=== PATIENT | female | born 1980 | race Caucasian/White ===

== ENCOUNTER 2020-08-27 16:29 | Outpatient (REF) | payer MEDICAID, SELFPAY | END 2020-08-27 16:30 | disposition home or self-care (01) | LOC: HO.LAB 16:29 | PROVIDERS: PCP Pediatrics; Visit Provider Internal Medicine | DX: Z20.828 Contact with and (suspected) exposure to other viral communicable diseases (principal) | CPT/HCPCS: 36415; 87635 ==

== ENCOUNTER 2020-10-11 14:19 | Outpatient (REF) | payer MEDICAID, SELFPAY | END 2020-10-11 14:20 | disposition home or self-care (01) | LOC: HO.LAB 14:19 | PROVIDERS: PCP Pediatrics; Visit Provider Internal Medicine | DX: Z20.828 Contact with and (suspected) exposure to other viral communicable diseases (principal) | CPT/HCPCS: C9803; U0003 ==

== ENCOUNTER 2021-01-05 16:21 | Emergency (ER) | payer MEDICAID, SELFPAY ==
--- NOTE | ~2021-01-05 | XR_ITS ---
EXAMINATION: BILATERAL HANDS CLINICAL INFORMATION: Injury COMPARISON: Right wrist 07/29/2018, right and left hands 05/03/2018 TECHNIQUE: 3 views each hand FINDINGS: Left: There is a fracture at the base of the distal phalanx of the third digit which involves the joint space. No other fractures are seen. Right: No bone joint or soft tissue abnormality is seen. XR/XR hand LT 2V IMPRESSION: Fractured base of distal phalanx left third digit involving the joint space.
--- NOTE | ~2021-01-05 | XR_ITS ---
EXAMINATION: BILATERAL HANDS CLINICAL INFORMATION: Injury COMPARISON: Right wrist 07/29/2018, right and left hands 05/03/2018 TECHNIQUE: 3 views each hand FINDINGS: Left: There is a fracture at the base of the distal phalanx of the third digit which involves the joint space. No other fractures are seen. Right: No bone joint or soft tissue abnormality is seen. XR/XR hand RT 2V IMPRESSION: Fractured base of distal phalanx left third digit involving the joint space.
[2021-01-05 16:55] VITALS: PULSE 79; RESP 20; TEMP 37.1; O2SAT 99; BMI 39.0
--- NOTE | 2021-01-05 20:13 | ED.EXTPRO ---
HPI - Extremity Problem General Chief complaint: Extremity Problem Stated complaint: Finger Injury Time Seen by Provider: 01/05/21 19:27 History of Present Illness HPI Narrative: Patient complains of pain in left 3rd finger and right thumb after tripping on her 's leg, no other injuries Related Data Previous Rx's Medication Instructions Recorded ibuprofen 600 mg PO Q6H PRN #20 tab 01/05/21 Allergies Allergy/AdvReac Type Severity Reaction Status Date / Time No Known Allergies Allergy Unverified 08/12/20 19:08 [No Known Allergies*] Review of Systems Review of Systems: Positive for left 3rd finger and right thumb pain Negatives are dizziness weakness fainting loss of consciousness head injury neck pain back pain, no numbness no weakness no tingling no laceration Yes all other systems are reviewed and are negative [facility] Past Medical History Source: nursing notes reviewed Medical History (Updated 01/06/21 @ 00:01 by Thomas Moscoso) Asthma Social History Social History Alcohol intake: never Smoked in Last 30 Days: No Use of substances other than those prescribed or required for medical reasons: No Advance Directives: No Advance Directives Information Provided: Yes Physical Exam Vital Signs: Vital Signs: Last Vital Signs Temp 98.7 F 01/05/21 16:55 Pulse 79 01/05/21 16:55 Resp 20 01/05/21 16:55 Pulse Ox 99 01/05/21 16:55 Body Mass Index 39.0 Patient is A&O x3, comfortable, no acute distress Head is normocephalic atraumatic Neck is supple nontender Respiratory no distress Extremities the left 3rd finger has tenderness and swelling around the D IP joint, skin is intact, tendon function is normal and neurovascular distal The right thumb had some tenderness at the MCP joint dorsal, there was not tenderness over the ulnar collateral ligament, there was no swelling and the thumb had a good range of motion, skin was intact and neurovascular distal as well as tendon function normal Skin no rashes Neuro no focal deficits Course Course Course Narrative: X-rays of right and left hand showed no abnormality on the right but did show a fracture of the distal phalanx of the left 3rd finger into the joint line and a finger splint was placed by the tech Discharge Plan Discharge Clinical Impression: Finger fracture, left Patient Disposition: Home, Self-Care Additional Instructions: Follow with hand doctor Return any concerns X-ray showed a fracture at the tip of the left 3rd finger Prescriptions: New ibuprofen 600 mg tablet 600 mg PO Q6H PRN (Reason: pain) Qty: 20 RF: 0 Referrals: Yehuda Vogel MD [Physician] - 2 days (Left 3rd finger fracture) Interventions: ED Discharge Assessment Last Done: 01/05/21 20:23 Discharge Date/Time: 01/05/21 20:24
== END 2021-01-05 20:24 | disposition home or self-care (01) ==
PROVIDERS: Emergency Provider Emergency Medicine
DX: S62.663A Nondisplaced fracture of distal phalanx of left middle finger, initial encounter for closed fracture (principal); W03.XXXA Other fall on same level due to collision with another person, initial encounter; Y93.9 Activity, unspecified; Y92.019 Unspecified place in single-family (private) house as the place of occurrence of the external cause; Y99.9 Unspecified external cause status
CPT/HCPCS: 29130; 73120; 99283; 99284

== ENCOUNTER → 2021-01-12 09:48 | Outpatient (BNVA) | payer MEDICAID, SELFPAY | PROVIDERS: Visit Provider Orthopaedic Surgery | DX: S62.633A Displaced fracture of distal phalanx of left middle finger, initial encounter for closed fracture (principal); S62.621A Displaced fracture of middle phalanx of left index finger, initial encounter for closed fracture | CPT/HCPCS: 99202 ==

== ENCOUNTER 2021-01-19 12:25 | Day surgery (SDC) | payer MEDICAID, SELFPAY ==
[2021-01-18 10:40] VITALS: BMI 38.9
--- NOTE | 2021-01-18 10:43 | HO.ANESPROP2 ---
Documented by User: Brooke Carrera 01/18/21 10:46 HPI - Anesthesia Eval Consult details Narrative: 40yo F for Left ORIF middle finger [facility] Active Problems Active Problems: All Active Problems (Updated 01/12/21 @ 13:11 by Heather Castellanos MD) Fracture of middle phalanx of left index finger (Acute) Fracture of distal phalanx of left middle finger (Acute) Past Medical History Medical History (Updated 01/18/21 @ 10:45 by Brooke Carrera) Asthma Obese Social History Social History (Updated 01/12/21 @ 10:43 by GUME Alvarez) Are you a primary career guidance technician to a significant other at home: No Do you presently have visiting nurse or other home services: No Alcohol intake: never Smoking Status: Never smoker Second Hand Smoke Exposure: No Advance Directives: No Advance Directives Information Provided: Yes Advance Directives on File: No Recently lost weight without trying: No Current occupational status: unemployed Current occupation: left handed Meds Allergies Allergy/AdvReac Type Severity Reaction Status Date / Time No Known Allergies Allergy Verified 01/12/21 10:42 [No Known Allergies*] Exam Exam Date and Time: January 18, 2021 1043 Height,Weight and Vital Signs: Height 5 ft 2 in Weight 96.615 kg Assessment and Plan Assessment Anesthesia Assessment: Chart Reviewed Documented by User: Clary Ayon 01/19/21 13:47 [facility] Past Medical History Medical History (Updated 01/18/21 @ 10:45 by Brooke Carrera) Asthma Obese Social History Social History (Updated 01/12/21 @ 10:43 by GUME Alvarez) Are you a primary career guidance technician to a significant other at home: No Do you presently have visiting nurse or other home services: No Alcohol intake: never Smoking Status: Never smoker Second Hand Smoke Exposure: No Advance Directives: No Advance Directives Information Provided: Yes Advance Directives on File: No Recently lost weight without trying: No Current occupational status: unemployed Current occupation: left handed Meds Allergies Allergy/AdvReac Type Severity Reaction Status Date / Time No Known Allergies Allergy Verified 01/12/21 10:42 [No Known Allergies*] Exam Airway Mallampati Class: II TM Dist: >3cm Neck ROM: Full Heart: RRR Lungs: CTA BL Assessment and Plan Assessment Anesthesia Assessment: Anesthesia Plan Discussed and Chart Reviewed Final Anesthetic Review NPO: Yes ASA Class: II Final Preanesthetic Review: No Changes in Pt Med Stat and Consent Obtained/Reviewed Patient Risk: Intermediate Procedure Risk: Intermediate Anesthetic Plan Anesthetic Plan: MAC: Disposition: Standard PACU
[2021-01-19] VITALS (8 sets, daily range): BP systolic 103–122; BP diastolic 48–77; PULSE 63–82; RESP 16–20; TEMP 36.2–37.1; O2SAT 97–100; BMI 38.9
--- NOTE | ~2021-01-19 | FL_ITS ---
EXAMINATION: XR FLUOROSCOPY WITH IMAGES CLINICAL INFORMATION: Reduction intra-articular fracture base third finger distal phalanx COMPARISON: Radiographs left hand 01/05/2021 TECHNIQUE: Fluoroscopy performed by Dr. Heather Castellanos. Fluoroscopy time: 44 seconds. DAP: 15.41 mGycm2 Images: 5 FINDINGS: The intra-articular fracture dorsal base finger distal phalanx is reduced with single orthopedic pin. Fracture fragments are in near-anatomic alignment. Hardware is intact. FL/FL guidance in OR IMPRESSION: Status post reduction fracture distal phalanx left third finger.
[2021-01-19 12:52] LABS: UPreg QC Valid YES; Urine Pregnancy NEGATIVE (NEGATIVE)
[2021-01-19] MEDS: Lactated Ringers 1,000 ML 100 ML IVCONT (13:27)
[2021-01-19] MEDS: Midazolam HCl/PF 2 MG/2 ML VIAL IVPUSH (13:56)
--- NOTE | 2021-01-19 15:49 | MHC.SHP ---
Pre-Procedural Eval Section B Chief Complaint: fx left middle finger Allergies: Allergies Allergy/AdvReac Type Severity Reaction Status Date / Time No Known Allergies Allergy Verified 01/12/21 10:42 [No Known Allergies*] Plan I have reviewed the history and physical and performed a pertinent physical examination on my patient. No changes have occurred unless specified.
--- NOTE | 2021-01-19 15:49 | W.PM.OPN ---
Operative Note Operative Note Date of Service: 01/19/21 Narrative: Operative Note Narrative: Preop diagnosis: 1. Left middle finger displaced intra-articular fracture of the base of the distal phalanx Postop diagnosis: Same Procedure: 1. Left middle finger distal phalanx fracture open reduction internal fixation Surgeon: Heather Castellanos MD Anesthesia: Mac plus regional block Findings: Displaced intra-articular fracture involving at least 50% of the articular surface. Satisfactory intraop operative reduction Implants: A 0.045 K-wire x1 Tourniquet time: 25 minutes EBL: 5.0 ml Specimen: None Drains: None Complications: None Disposition: Brought to the recovery room in stable condition Plan: Follow-up in 10-14 days for wound check, finger splint to allow PIP motion, and to teach pin site care Anticipate K-wire removal at between 5 and 6 weeks Indications: The patient is a 40 year old woman with displaced intra-articular fracture of the base of the left middle finger distal phalanx involving more than 50% of the articular surface . The risks and benefits of operative treatment, including but not limited to risk of damage to blood vessels, nerves, tendons, infection, recurrence, persistent pain or numbness, incomplete resolution of preoperative symptoms, or need for further surgery were discussed with the patient and they wished to proceed with surgery. Procedure: Once consent was obtained patient was brought back to the operating suite and placed in the operating table in a supine position. . Perioperative antibiotics and anesthesia was administered by the anesthesia team. A digital block was performed by me by infiltrating about the digital nerves in the left middle finger using some 2% lidocaine with 1 to [id number] epinephrine. A tourniquet was applied to the proximal aspect of the left upper extremity and the limb was prepped and draped in a standard surgical fashion. The limb was elevated exsanguinated with Esmarch bandage and the tourniquet inflated to 250 mm of mercury for a total tourniquet time of 25 minutes. I made an s shaped incision over the left middle finger DIP joint. The incision was made through the skin to the soft tissues using a #15 blade. The fracture was identified and debrided using a # 15 blade and a curet. An open reduction was performed. A 0.045 k-wire was passed retrograde through the tip of the distal phalanx. The fracture was reduced, and the dorsal fragment held in place. The 0.045 K-wire was advanced across the fracture, then across the DIP joint . I was very satisfied with our reduction and placement of the 0.045 K-wire. At this point the K-wire was bent cut short had a pin cap applied. At this point the tourniquet was deflated and hemostasis obtained with a brief period of local pressure and bipolar electrocautery. The wound was copiously irrigated with normal saline. The skin edges were reapproximated with 5-0 nylon suture. A sterile dressing and a finger splint were applied. The patient appears to have tolerated the procedure well and with no complications. All digits were well vascularized conclusion of the case.
--- NOTE | 2021-01-19 16:03 | ECG_ITS ---
Test Reason : Patient c/o chest pain post op Blood Pressure : / mmHG Vent. Rate : 068 BPM Atrial Rate : 068 BPM P-R Int : 160 ms QRS Dur : 084 ms QT Int : 430 ms P-R-T Axes : 016 017 050 degrees QTc Int : 457 ms Normal sinus rhythm with sinus arrhythmia Normal ECG No previous ECGs available Referred By: Cathleen Arnold Electronically Signed By:LAUREEN PAYNE MD
== END 2021-01-19 17:18 | disposition home or self-care (01) ==
PROVIDERS: Nurse Practitioner; PCP Internal Medicine; Visit Provider Orthopaedic Surgery
PROC: (CPT 26765; principal; 2021-01-19 14:10)
DX: S62.633A Displaced fracture of distal phalanx of left middle finger, initial encounter for closed fracture (principal); X58.XXXA Exposure to other specified factors, initial encounter; Y93.89 Activity, other specified; Y92.9 Unspecified place or not applicable; Y99.8 Other external cause status; J45.909 Unspecified asthma, uncomplicated
CPT/HCPCS: 26765; 81025; 93005; J0690; J2250; J2370; J3010

== ENCOUNTER 2021-01-24 14:22 | Outpatient (REF) | payer MEDICAID, SELFPAY ==
--- NOTE | ~2021-01-24 | XR_ITS ---
EXAMINATION: XR HAND, LEFT CLINICAL INFORMATION: Fracture COMPARISON: Previous x-rays most recent December 2010 TECHNIQUE: PA, lateral, and oblique views of the left hand. FINDINGS: There is a pin across the DIP joint of the third finger. There is a displaced fracture of the distal phalanx intra-articular with the DIP joint. Fracture fragment is displaced dorsally. There is a minimally displaced volar fracture of the middle phalanx of the third finger intra-articular with the PIP joint. Alignment appears unchanged from 01/05/2021. Fracture lines are still seen and no bony callus formation is seen. XR/XR hand LT min 3V IMPRESSION: New pin or wire across the DIP joint of the third finger. Distal and middle phalanx fractures appear unchanged in alignment from previous x-ray 01/05/2021.
== END 2021-01-24 14:23 | disposition home or self-care (01) ==
LOC: HO.XRAY 14:22
PROVIDERS: PCP Internal Medicine; Visit Provider Orthopaedic Surgery
DX: S62.621A Displaced fracture of middle phalanx of left index finger, initial encounter for closed fracture (principal); S62.633A Displaced fracture of distal phalanx of left middle finger, initial encounter for closed fracture
CPT/HCPCS: 73130; 99212

== ENCOUNTER 2021-01-31 10:54 | Outpatient (REF) | payer MEDICAID, SELFPAY ==
--- NOTE | ~2021-01-31 | XR_ITS ---
EXAMINATION: XR HAND, LEFT CLINICAL INFORMATION: Pain in left hand COMPARISON: 01/24/2021 TECHNIQUE: PA, lateral, and oblique views of the left hand. FINDINGS: K wire is in place transfixing the fracture of the third digit distal phalanx. The hardware crosses the distal interphalangeal joint. Alignment is maintained. Unchanged alignment of the dorsal fracture fragment. Mild soft tissue swelling. XR/XR hand LT min 3V IMPRESSION: No significant change from prior with K wire in place at the third digit distal interphalangeal joint. Distal phalanx fracture fragment is unchanged.
== END 2021-01-31 10:55 | disposition home or self-care (01) ==
LOC: HO.HOSX 10:54
PROVIDERS: PCP Internal Medicine; Visit Provider Orthopaedic Surgery
DX: S62.621D Displaced fracture of middle phalanx of left index finger, subsequent encounter for fracture with routine healing (principal); S62.633D Displaced fracture of distal phalanx of left middle finger, subsequent encounter for fracture with routine healing
CPT/HCPCS: 73130; 99212

== ENCOUNTER 2021-02-21 11:08 | Outpatient (REF) | payer MEDICAID, SELFPAY ==
[2021-02-22 08:40] LABS: BV Int Neg Control Negative (Negative); BV Int Pos Control Positive (Positive)
[2021-02-22 08:57] LABS: CT PCR NOT DETECTED (Not Detect.); NG PCR NOT DETECTED (Not Detect.)
== END 2021-02-21 11:09 | disposition home or self-care (01) ==
LOC: HO.LAB 11:08
PROVIDERS: PCP Internal Medicine; Visit Provider Advanced Practice Midwife
DX: Z01.411 Encounter for gynecological examination (general) (routine) with abnormal findings (principal); N93.9 Abnormal uterine and vaginal bleeding, unspecified; R32 Unspecified urinary incontinence; R10.2 Pelvic and perineal pain; N75.0 Cyst of Bartholin's gland; Z20.2 Contact with and (suspected) exposure to infections with a predominantly sexual mode of transmission
CPT/HCPCS: 87480; 87491; 87510; 87591; 87660

== ENCOUNTER 2021-02-24 13:11 | Outpatient (REF) | payer MEDICAID, SELFPAY ==
--- NOTE | ~2021-02-24 | US_ITS ---
EXAMINATION: US PELVIS, COMPLETE CLINICAL INFORMATION: Pelvic and perineal pain COMPARISON: 02/14/2017 TECHNIQUE: Transabdominal and transvaginal imaging performed. FINDINGS: Uterus normal in size and configuration measuring 8.1 x 4.1 x 5.7 cm. There is a 4.3 x 4.0 x 3.1 cm fibroid within the right uterus. Endometrial signature measures 1.5 cm and is homogeneous in appearance. Ovaries are normal in size and appearance measuring 3.2 x 1.7 x 2.1 cm on the right and 2.9 x 1.3 x 1.7 cm on the left. No adnexal masses. No free fluid. US/US pelvic complete IMPRESSION: Single 4.3 cm fibroid measures from the right lateral uterus. Unremarkable sonographic appearance of the ovaries.
--- NOTE | ~2021-02-24 | US_ITS ---
EXAMINATION: US PELVIS, COMPLETE CLINICAL INFORMATION: Pelvic and perineal pain COMPARISON: 02/14/2017 TECHNIQUE: Transabdominal and transvaginal imaging performed. FINDINGS: Uterus normal in size and configuration measuring 8.1 x 4.1 x 5.7 cm. There is a 4.3 x 4.0 x 3.1 cm fibroid within the right uterus. Endometrial signature measures 1.5 cm and is homogeneous in appearance. Ovaries are normal in size and appearance measuring 3.2 x 1.7 x 2.1 cm on the right and 2.9 x 1.3 x 1.7 cm on the left. No adnexal masses. No free fluid. US/US transvaginal IMPRESSION: Single 4.3 cm fibroid measures from the right lateral uterus. Unremarkable sonographic appearance of the ovaries.
== END 2021-02-24 13:12 | disposition home or self-care (01) ==
LOC: HO.US 13:11
PROVIDERS: Visit Provider Advanced Practice Midwife
DX: R10.2 Pelvic and perineal pain (principal)
CPT/HCPCS: 76830; 76856

== ENCOUNTER 2021-02-28 12:14 | Outpatient (REF) | payer MEDICAID, SELFPAY ==
--- NOTE | ~2021-02-28 | XR_ITS ---
EXAMINATION: XR HAND, LEFT CLINICAL INFORMATION: Pain in left hand COMPARISON: 01/31/2021 TECHNIQUE: PA, lateral, and oblique views of the left hand. FINDINGS: There is a K wire across the third digit distal interphalangeal joint. Fracture of the third digit distal phalanx is again noted with unchanged alignment. Osseous bridging. No new abnormality. Mild soft tissue swelling. XR/XR hand LT min 3V IMPRESSION: K wire fixation of the third digit distal phalanx fracture with unchanged alignment. Osseous bridging.
== END 2021-02-28 12:15 | disposition home or self-care (01) ==
LOC: HO.HOSX 12:14
PROVIDERS: Visit Provider Orthopaedic Surgery
DX: S62.621D Displaced fracture of middle phalanx of left index finger, subsequent encounter for fracture with routine healing (principal); S62.633D Displaced fracture of distal phalanx of left middle finger, subsequent encounter for fracture with routine healing
CPT/HCPCS: 73130; 99212

== ENCOUNTER 2021-03-03 13:00 | Outpatient (RCR) | payer MEDICAID, SELFPAY ==
--- NOTE | 2021-02-24 15:37 | MHC.OT.OEV ---
[address] [phone] F: [phone] Occupational Therapy Evaluation Diagnosis: Fracture of middle phalanx of left index finger; Fracture of distal phalanx of left middle finger s/p left middle finger ORIF; K-wire at the DIP Date of Onset: 12/31/20 Date of Surgery: 01/19/21 Attending Provider: Heather Castellanos Prescribed Treatment: Evmolly MD Follow Up Appointment: 02/28/21 History of Current Condition: Pt jammed the middle finger backwards and broke the distal and middle phalanx s/p ORIF on 01/19/21. 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 Independent with ADLs/IADLs, enjoys knitting, painting, reading bible Living Situation, Family and/or Social Support: Lives with spouse who assists with ADLs/IADLs Current Level of Function and Occupation Self Care, Employment, Leisure: Not working, difficulties with ADLs/IADLs due to pain and ROM limitations, has recently returned to some leisure activities like knitting Sleep: No problems, unless wire gets hit Driving: No problems with driving Pain Assessment Pain Score: 4-10/10 Pain Scale Used: Numeric (0 - 10) Pain Location and Description: L MF at DIP and PIP (4-10/10) R Thumb, CMC joint (2-5/10) Aggravating Factors: Bumping finger on objects Alleviating Factors: Does not use heat/ice, not taking medication for pain Skin and Soft Tissue Assessment Skin and Soft Tissue: Comments: K-wire in L MF with dorsal steri-strips; pin clear, dry and intact without drainage Sensory Assessment Temperature: Light Touch: Left Impaired Proprioception: Vibration: Comments: [place] monofilaments: L hand diminished light touch to dorsal hand/digits Hypersensitive to dorsal MF of L hand Edema Assessment Upper Extremity: WNL Lower Extremity: Comments: MF PIP circumference: L 6.1 cm; R 6.0 cm Dexterity Assessment Dexterity: B/L Impaired Comments: Functional Dexterity Test: R 46 seconds, L 46 (76 seconds with 3 drops) and refraining use of MF Special Tests Comments: AROM(PROM) Strength Elbow Flexion: WFL Extension: WFL Pronation: WFL Supination: WFL Comments: Flexion: Extension: Pronation: Supination: Comments: Wrist Flexion: L 58; R 70 Extension: L 65; R 64 Ulnar Deviation: L 42; R 52 Radial Deviation: L 35; R 22 Comments: Pain in L wrist with wrist extension Flexion: Extension: Ulnar Deviation: Radial Deviation: Comments: Digits Index MCP: L 70 PIP: DIP: Long MCP: L 80; R 74 PIP: L 0/22; R 0/84 DIP: L Pin intact; R 84 Ring MCP: L 66 PIP: DIP: Small MCP: L 70 PIP: DIP: Comments: Gross Grasp: R 86 Lateral Pinch: R 4 Two-Point Pinch: R 4 Three-Jaw Edinson: R 7 Comments: Defer L due to pinning Patient Education Primary Language: Release Manager Required: Yes Current Knowledge: Understands information with skills for self-management Teaching Method: Demonstration Handouts Verbal Education Needs Identified on Evaluation: ADL's Disease Information Exercise Pain How did patient/family demonstrate learning? Patient demonstrates Patient verbalizes Family/SO demonstrates Family/SO verbalizes Barriers to Learning: None Readiness for Learning: Accepting Who was educated? Patient Family/spouse Comments: Declines use of [facility] or [facility] parts interpreter; spouse assisting with translation Plan of Care Assessment: Jairo is a 40 year old female who sustained a fracture to her non dominant left middle finger at distal and middle phalanx. She is five weeks post op and presents to the clinic in an gregory bandage and provides adequate pin protection. She has a follow-up doctor's appointment on 02/28/[address] Castellanos for pin removal. 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 During her OT evaluation, Jairo presents as guarded and demonstrates hesitation in flexing at the MF PIP joint. A 71% limitation was reported per the Quick DASH assessment. Continued skilled OT is highly warranted to achieve her optimal functional level and improve her QOL. STG Duration: 3 weeks Short Term Goals: Ind HEP Ind heat/ice use IND scar mobilization and desensitation techniques IND ADL closure board without difficulties L MF PIPJ 40 degrees Report <6/10 with light ADLs and IADLs with incorporation of L MF LTG Duration: 6 weeks Detention Goals: Wean from orthosis Quick DASH <40 L gross grasp >60 Improve functional dexterity test to moderately functional (<33 seconds) Report <4/10 pain with moderate IADLs and ADLs, painfree at rest L MF PIPJ >65 degrees L MF DIPJ > 50 degrees Frequency and Duration: The patient will be seen 2-3x/week for 6 weeks Treatment Plan: Therapeutic Exercise Therapeutic Activity Home Exercise Program Splinting Neuro Re-ed Patient Education Desensitization/Sensory Re-ed Edema Control ADL Training Ultrasound NMES Iontophoresis Paraffin Fluidotherapy MHP Cold Packs Joint Mobilization Soft Tissue Mobilization Kinesiotaping Electronically Signed By: Khalida Mas OT/s Reviewed/agree with student documentation: Yes Therapist: PARAG George/Oskar Please sign and return to therapist, Thank you for your referral.
--- NOTE | 2021-03-17 14:17 | MHC.OT.DC ---
[address] [phone] F: [phone] Occupational Therapy Discharge Note Provider: Heather Castellanos Diagnosis: Fracture of middle phalanx of left index finger; Fracture of distal phalanx of left middle finger; s/p LT MF ORIF K-wire at the DIP Date of Surgery: 01/19/21 Date of Evaluation: 02/24/21 Date of Discharge: 03/17/21 Treatments to Date: 2 Cancellations to Date: 1 No Shows to Date: 5 Discharge Status: Visit Non-compliance Discharge Summary: PATIENT HAS NO-SHOWED TO FIVE OT APPOINTMENTS. MULTIPLE VOICEMAILS LEFT FOR PATIENT, WITH ASSIST FROM [employer]ISTOLOGY AIDE, EDUCATING Pt ON IMPORTANCE OF OT AND OF THE CORE ATTENDANCE POLICY. MD NOTIFIED OF NON-COMPLIANCE. PATIENT WILL BE DISCHARGED FROM OUTPATIENT OT AT THIS TIME. Electronically Signed By: BÁRBARA BROTHERS OTR/L Reviewed/agree with student documentation: N/A Therapist: Please Sign and return to therapist, thank you for your referral.
== END 2021-03-17 14:20 | disposition other institution (70) ==
LOC: HO.OT 13:00
PROVIDERS: PCP Internal Medicine; Visit Provider Orthopaedic Surgery
DX: S62.621D Displaced fracture of middle phalanx of left index finger, subsequent encounter for fracture with routine healing (principal); S62.633D Displaced fracture of distal phalanx of left middle finger, subsequent encounter for fracture with routine healing
CPT/HCPCS: 97110; 97167

== ENCOUNTER 2021-03-14 13:38 | Outpatient (REF) | payer MEDICAID, SELFPAY ==
[2021-03-14 14:05] LABS: COVID-19 Test Negative (Negative)
== END 2021-03-14 13:39 | disposition home or self-care (01) ==
LOC: HO.LAB 13:38
PROVIDERS: Visit Provider Internal Medicine
DX: Z20.822 Contact with and (suspected) exposure to COVID-19 (principal)
CPT/HCPCS: 36415; 87635; C9803

== ENCOUNTER 2021-03-15 10:41 | Outpatient (REF) | payer MEDICAID, SELFPAY ==
--- NOTE | ~2021-03-15 | XR_ITS ---
EXAMINATION: XR HAND, LEFT CLINICAL INFORMATION: Left hand pain. COMPARISON: Most recent left hand radiographs dated 02/28/2021. TECHNIQUE: PA, lateral, and oblique views of the left hand. FINDINGS: Interval removal of the previously seen orthopedic wire. Deformity consistent with prior injury. No acute fracture or dislocation. No joint space narrowing or marginal osteophytes. Mild periarticular osteopenia. XR/XR hand LT min 3V IMPRESSION: Osseous bridging across the previously seen fracture. No acute fracture or dislocation. Mild periarticular osteopenia.
== END 2021-03-15 10:42 | disposition home or self-care (01) ==
LOC: HO.HOSX 10:41
PROVIDERS: Visit Provider Orthopaedic Surgery
DX: S62.621D Displaced fracture of middle phalanx of left index finger, subsequent encounter for fracture with routine healing (principal); S62.633D Displaced fracture of distal phalanx of left middle finger, subsequent encounter for fracture with routine healing; X58.XXXD Exposure to other specified factors, subsequent encounter
CPT/HCPCS: 73130; 99212

== ENCOUNTER 2021-04-04 13:54 | Outpatient (REF) | payer MEDICAID, SELFPAY ==
[2021-04-04 14:13] LABS: COVID-19 Test Negative (Negative); IDNOW Serial# 55D5AD1C
== END 2021-04-04 13:55 | disposition home or self-care (01) ==
LOC: HO.LAB 13:54
PROVIDERS: Visit Provider Internal Medicine
DX: Z20.822 Contact with and (suspected) exposure to COVID-19 (principal)
CPT/HCPCS: 36415; 87635; C9803

== ENCOUNTER 2021-04-26 08:12 | Outpatient (REF) | payer MEDICAID, SELFPAY | END 2021-04-26 08:13 | disposition home or self-care (01) | LOC: HO.HOSX 08:12 | PROVIDERS: Visit Provider Orthopaedic Surgery | DX: Z13.89 Encounter for screening for other disorder (principal) ==

== ENCOUNTER 2021-08-03 10:46 | Outpatient (REF) | payer MEDICAID, SELFPAY | END 2021-08-03 10:47 | disposition home or self-care (01) | LOC: HO.LNP 10:46 | DX: R35.0 Frequency of micturition (principal); N39.3 Stress incontinence (female) (male) | CPT/HCPCS: 51798; 87086; 99202 ==

== ENCOUNTER 2021-08-13 13:40 | Emergency (ER) | payer MEDICAID, SELFPAY ==
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
[2021-08-13 14:27] VITALS: BP 117/74; PULSE 74; RESP 18; TEMP 37.1; O2SAT 99; BMI 37.8
[2021-08-13] MEDS: Cyclobenzaprine HCl 5 MG TABLET PO (15:44)
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
== END 2021-08-13 16:57 | disposition home or self-care (01) ==
PROVIDERS: Emergency Provider Emergency Medicine; PCP Pediatrics
DX: M54.2 Cervicalgia (principal); M54.5 Low back pain; M25.512 Pain in left shoulder; M25.511 Pain in right shoulder; Z79.899 Other long term (current) drug therapy
CPT/HCPCS: 72125; 99283; 99284

== ENCOUNTER 2021-10-27 11:28 | Outpatient (REF) | payer MEDICAID, SELFPAY ==
[2021-10-27 12:28] LABS: COVID-19 Test Negative (Negative)
== END 2021-10-27 11:29 | disposition home or self-care (01) ==
LOC: HO.LAB 11:28
PROVIDERS: Visit Provider Internal Medicine
DX: Z20.822 Contact with and (suspected) exposure to COVID-19 (principal)
CPT/HCPCS: 36415; 87635; C9803

== ENCOUNTER 2021-12-02 13:36 | Outpatient (REF) | payer MEDICAID, SELFPAY ==
[2021-12-02 15:03] LABS: Binax Internal Control QC Valid; Binax Now Covid-19 Ag Negative (Negative)
== END 2021-12-02 13:37 | disposition home or self-care (01) ==
LOC: HO.LAB 13:36
PROVIDERS: Visit Provider Internal Medicine
DX: Z20.822 Contact with and (suspected) exposure to COVID-19 (principal)
CPT/HCPCS: 36415; C9803

== ENCOUNTER 2022-06-27 14:53 | Emergency (ER) | payer MEDICAID, SELFPAY ==
--- NOTE | ~2022-06-27 | XR_ITS ---
EXAMINATION: XR CHEST CLINICAL INFORMATION: Chest pain COMPARISON: 01/28/2020 TECHNIQUE: Frontal view of the chest was obtained. FINDINGS: No significant abnormality is noted involving the heart, lungs, mediastinum, bony thorax or soft tissues. XR/XR chest 1V IMPRESSION: Unremarkable examination.
--- NOTE | 2022-06-27 14:57 | ECG_ITS ---
Test Reason : cp Blood Pressure : / mmHG Vent. Rate : 077 BPM Atrial Rate : 077 BPM P-R Int : 146 ms QRS Dur : 082 ms QT Int : 388 ms P-R-T Axes : 018 027 001 degrees QTc Int : 439 ms Normal sinus rhythm with sinus arrhythmia Normal ECG When compared with ECG of 19-JAN-2021 16:36, T wave inversion now evident in Inferior leads Referred By: Generic ED Physician Electronically Signed By:LAUREEN PAYNE MD
[2022-06-27 15:19] VITALS: BP 130/68; PULSE 90; RESP 18; TEMP 36.6; O2SAT 97; BMI 40.2
[2022-06-27 15:32] LABS: MANUAL DIFF FLAG NO
[2022-06-27 15:35] LABS: Basophils Percent Auto 0.1 % (0-2); Eosinophils Percent Auto 0.3 % (0-4); Hematocrit 39.4 % (37.0-47.0); Hemoglobin 13.1 g/dl (12.0-16.0); Imm Gran Abs Auto 0.02 X10*3/uL (0.00-0.03); Imm Gran Pct Auto 0.2 % (0.0-0.4); Lymphocytes Absolute Auto 1.3 X10*3/uL (1.2-4.9); Lymphocytes Percent Auto 15.1 % (20-40); Mean Corpuscular HGB Conc 33.2 g/dl (31.0-35.0); Mean Corpuscular Hemoglobin 27.8 pg (27.0-33.0); Mean Corpuscular Volume 83.7 fL (80.0-98.0); Mean Platelet Volume 10.3 fL (9.4-12.3); Monocytes Absolute Auto 0.4 X10*3/uL (0.1-1.2); Neutrophils Absolute Auto 7.1 x10*3/uL (2.0-8.3); Neutrophils Percent Auto 80.3 % (45-73); Platelet Count 253 X10*3/uL (160-400); Red Blood Count 4.71 X10*6/uL (4.20-5.50); Red Cell Distribution Width 13.2 % (11.0-16.0); White Blood Count 8.9 X10*3/uL (4.8-10.8)
[2022-06-27 15:47] LABS: Anion Gap 12 (12-20); Blood Urea Nitrogen 13 mg/dL (9-16); Calcium 8.9 mg/dL (8.4-10.2); Carbon Dioxide 25 mmol/L (22-29); Chloride 105 mmol/L (96-108); Creatinine Clr Calc Pharmacy 101.7; Estimated Glomerular Filt Rate > 60; Glucose Random 102 mg/dL (60-115); Potassium 4.1 mmol/L (3.3-5.1); Sodium 138 mmol/L (135-145)
[2022-06-27 15:58] LABS: Troponin-I High Sensitivity < 3.5 ng/L (<3.5-17.0)
--- NOTE | 2022-06-27 20:26 | ED_ITS ---
HPI - Chest Pain General Chief Complaint: Chest Pain Stated Complaint: Chest pain Time Seen by Provider: 06/27/22 20:25 Source: patient Mode of arrival: ambulatory Limitations: no limitations History of Present Illness HPI narrative: Patient with no known coronary disease complaining of substernal chest pain 3-4 days constant radiated to the left arm also sometimes feels short of breath pain increases on taking deep breath and palpation Related Data Home Medications Medication Instructions Recorded Confirmed amitriptyline 10 mg tablet 10 mg PO BEDTIME 08/03/21 cholecalciferol (vitamin D3) 50 50 mcg PO DAILY 08/03/21 mcg (2,000 unit) capsule cyclobenzaprine 10 mg tablet 10 mg PO BEDTIME 08/03/21 venlafaxine 37.5 mg 37.5 mg PO DAILY 08/03/21 capsule,extended release 24 hr Previous Rx's Medication Instructions Recorded ibuprofen 600 mg tablet 600 mg PO Q6H PRN pain #20 tabs 01/05/21 hydrocodone 5 mg-acetaminophen 325 1 - 2 tab PO Q6H PRN pain #10 tabs 21 mg tablet hydrocodone 5 mg-acetaminophen 325 1 tab PO Q8H PRN pain #5 tabs 01/24/21 mg tablet metronidazole 500 mg tablet 500 mg PO BID 7 days #14 tabs 03/03/21 (Flagyl) acetaminophen 500 mg tablet 500 mg PO Q6H PRN pain or fever 08/13/21 (Tylenol Extra Strength) #20 tabs cyclobenzaprine 5 mg tablet 5 mg PO Q8H PRN pain (scale score 08/13/21 7-10) 5 days #14 tabs lidocaine 5 % topical patch 1 patch topical DAILY PRN pain #30 08/13/21 (Lidoderm) ea naproxen 500 mg tablet 500 mg PO BID PRN pain 10 days #20 08/13/21 tabs oxybutynin chloride 10 mg 10 mg PO DAILY OAB 30 days #30 tabs 08/26/21 tablet,extended release 24 hr cyclobenzaprine 10 mg tablet 10 mg PO Q8H #20 tabs 06/27/22 diclofenac sodium 50 mg 50 mg PO Q12H PRN pain #30 tabs 06/27/22 tablet,delayed release Allergies Allergy/AdvReac Type Severity Reaction Status Date / Time No Known Allergies Allergy Verified 06/27/22 15:19 [No Known Allergies*] Review of Systems Review of Systems: Yes all other systems are reviewed and are negative [facility] Past Medical History Medical History Asthma Obese Stress incontinence (female) (male) Surgical History H/O hand surgery History of bilateral tubal ligation Social History Social History Are you a primary healthcare architect to a significant other at home: No Do you presently have visiting nurse or other home services: No Alcohol intake: never Patient Tobacco Use Status: Tobacco use Unknown Second Hand Smoke Exposure: No Use of substances other than those prescribed or required for medical reasons: No Advance Directives: No Advance Directives Information Provided: No Current occupational status: unemployed Current occupation: left handed Physical Exam Vital Signs: Vital Signs: Last Vital Signs Temp 97.9 F 06/27/22 15:19 Pulse 67 06/27/22 21:05 Resp 16 06/27/22 21:05 BP 126/73 06/27/22 21:05 Pulse Ox 98 06/27/22 21:05 O2 Del Method 06/27/22 21:05 BMI result Body Mass Index 40.2 Appearance: Alert. Oriented X3. No acute distress. Eyes: PERRLA, No Nystagmus ENT: Pharynx normal. Oral Mucosa moist Neck: Normal inspection. Neck supple. CVS: Normal heart rate and rhythm. Pulses normal. Respiratory: No respiratory distress. Equal air entry bilateral, no wheezing/rales/rhonchi tenderness to touch left 2nd costochondral junction Abdomen: Soft and nontender. Bowel sounds are present, no mass palpable, no CVA tenderness Skin: Skin warm and dry. Normal skin color. Normal skin turgor. Extremities: No lower extremity edema. No calf tenderness Neuro: Oriented X 3. No motor deficit. MDM - Chest Pain MDM Narrative Medical decision making narrative: Patient has atypical chest pain tender to touch left 2nd costochondral junction cardiac enzymes negative EKG negative discharge patient home on diclofenac sodium patient does have a history of questionable fibromyalgia Lab Data Attestation: I reviewed the patient's lab results. Result diagrams: 06/27/22 15:27 06/27/22 15:27 Labs: Lab Results 06/27/22 06/27/22 06/27/22 Range/Units 15:27 15:27 15:27 WBC 8.9 (4.8-10.8) X10*3/uL RBC 4.71 (4.20-5.50) X10*6/uL Hgb 13.1 (12.0-16.0) g/dl Hct 39.4 (37.0-47.0) % MCV 83.7 (80.0-98.0) fL MCH 27.8 (27.0-33.0) pg MCHC 33.2 (31.0-35.0) g/dl RDW 13.2 (11.0-16.0) % Plt Count 253 (160-400) X10*3/uL MPV 10.3 (9.4-12.3) fL Immature Gran % (Auto) 0.2 (0.0-0.4) % Neut % (Auto) 80.3 H (45-73) % Lymph % (Auto) 15.1 L (20-40) % Hart % (Auto) 4.0 (2-11) % Eos % (Auto) 0.3 (0-4) % Baso % (Auto) 0.1 (0-2) % Lymph # (Auto) 1.3 (1.2-4.9) X10*3/uL Hart # (Auto) 0.4 (0.1-1.2) X10*3/uL Eos # (Auto) 0.0 (0.0-0.4) X10*3/uL Baso # (Auto) 0.0 (0.0-0.2) X10*3/uL Abs Immat Gran (auto) 0.02 (0.00-0.03) X10*3/uL Absolute Neuts (auto) 7.1 (2.0-8.3) x10*3/uL Absolute Nucleated RBC 0.000 (0.0-0.012) X10*3/uL Nucleated RBC % (auto) 0.0 (0.0-0.2) /100WBC Sodium 138 (135-145) mmol/L Potassium 4.1 (3.3-5.1) mmol/L Chloride 105 (96-108) mmol/L Carbon Dioxide 25 (22-29) mmol/L Anion Gap 12 (12-20) BUN 13 (9-16) mg/dL Creatinine 0.82 (0.5-1.4) mg/dL Estim Creat Clear Calc 101.7 Estimated GFR > 60 Random Glucose 102 (60-115) mg/dL Calcium 8.9 (8.4-10.2) mg/dL Troponin I High Sens < 3.5 (<3.5-17.0) ng/L ECG Data ECG #1: Interpretation: Normal sinus rhythm heart rate 77 beats per minute normal intervals normal axis no acute ST changes no acute ischemia Discharge Plan Discharge Clinical Impression: Costalchondritis Patient Disposition: Home, Self-Care Instructions: Costochondritis (ED) Additional Instructions: Take pain medication as prescribed Continue muscle relaxant Follow with PCP Prescriptions: New diclofenac sodium 50 mg tablet,delayed release (DR/EC) 50 mg PO Q12H PRN (Reason: pain) Qty: 30 0RF cyclobenzaprine 10 mg tablet 10 mg PO Q8H Qty: 20 0RF No Action metronidazole [Flagyl] 500 mg tablet 500 mg PO BID 7 Days Qty: 14 0RF oxybutynin chloride 10 mg tablet extended release 24hr 10 mg PO DAILY 30 Days Qty: 30 0RF hydrocodone-acetaminophen 5-325 mg tablet 1 - 2 tab PO Q6H PRN (Reason: pain) Qty: 10 0RF ibuprofen 600 mg tablet 600 mg PO Q6H PRN (Reason: pain) Qty: 20 0RF acetaminophen [Tylenol Extra Strength] 500 mg tablet 500 mg PO Q6H PRN (Reason: pain or fever) Qty: 20 0RF lidocaine [Lidoderm] 5 % adhesive patch,medicated 1 patch topical DAILY MDD remove after 12 hours PRN (Reason: pain) Qty: 30 0RF Rx Instructions: leave on most painful area for up to 12 hrs naproxen 500 mg tablet 500 mg PO BID PRN (Reason: pain) 10 Days Qty: 20 0RF cyclobenzaprine 5 mg tablet 5 mg PO Q8H PRN (Reason: pain (scale score 7-10)) 5 Days Qty: 14 0RF hydrocodone-acetaminophen 5-325 mg tablet 1 tab PO Q8H PRN (Reason: pain) Qty: 5 0RF Interventions: ED Discharge Assessment Last Done: 06/27/22 21:08 Discharge Date/Time: 06/27/22 21:09
[2022-06-27] MEDS: Ketorolac Tromethamine 60 MG/2 ML VIAL IM (21:00)
[2022-06-27 21:05] VITALS: BP 126/73; PULSE 67; RESP 16; O2SAT 98
== END 2022-06-27 21:09 | disposition home or self-care (01) ==
PROVIDERS: Emergency Provider Internal Medicine
DX: M94.0 Chondrocostal junction syndrome [Tietze] (principal); E66.9 Obesity, unspecified; Z68.41 Body mass index [BMI] 40.0-44.9, adult
CPT/HCPCS: 36415; 71045; 80048; 84484; 85025; 93005; 96372; 99284; J1885

== ENCOUNTER 2022-08-30 12:35 | Outpatient (REF) | payer MEDICAID, SELFPAY ==
[2022-08-30 13:52] LABS: COVID-19 Test Positive (Negative); IDNOW Serial# 9DB6401D
== END 2022-08-30 12:36 | disposition home or self-care (01) ==
LOC: HO.LAB 12:35
PROVIDERS: Visit Provider Internal Medicine
DX: Z20.822 Contact with and (suspected) exposure to COVID-19 (principal)
CPT/HCPCS: 87635; C9803

== ENCOUNTER 2022-09-05 12:33 | Outpatient (REF) | payer MEDICAID, SELFPAY ==
[2022-09-05 13:00] LABS: COVID-19 Test Negative (Negative)
== END 2022-09-05 12:34 | disposition home or self-care (01) ==
LOC: HO.LAB 12:33
PROVIDERS: Visit Provider Internal Medicine
DX: Z20.822 Contact with and (suspected) exposure to COVID-19 (principal)
CPT/HCPCS: 87635; C9803

== ENCOUNTER 2023-06-29 19:02 | Emergency (ER) | payer OTHER, MEDICAID, SELFPAY ==
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
--- NOTE | 2023-06-29 19:09 | ECG_ITS ---
Test Reason : CHEST PAIN Blood Pressure : / mmHG Vent. Rate : 068 BPM Atrial Rate : 068 BPM P-R Int : 162 ms QRS Dur : 078 ms QT Int : 402 ms P-R-T Axes : 045 029 002 degrees QTc Int : 427 ms Normal sinus rhythm with sinus arrhythmia Possible Left atrial enlargement Borderline ECG When compared with ECG of 27-JUN-2022 15:03, No significant change was found Referred By: Generic ED Physician Electronically Signed By:FREYA HECK
[2023-06-29 19:10] VITALS: BP 128/84; PULSE 72; O2SAT 98; BMI 41.1
[2023-06-29 19:18] VITALS: BP 133/60; PULSE 71; RESP 14; TEMP 36.9; O2SAT 100
[2023-06-29 20:49] VITALS: BP 124/57; PULSE 82; RESP 16; TEMP 37.1; O2SAT 98
[2023-06-29] MEDS: Cyclobenzaprine HCl 10 MG TABLET PO (21:35)
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
--- NOTE | 2023-06-29 21:36 | PC.NURSE ---
Pt medication PO as ordered. Tolerated well
--- NOTE | 2023-06-29 22:19 | PC.NURSE ---
Pt aox4 resting at the bedside. No apparent distress noted. VSS. Discharge instructions reviewed with pt. Pt verbalizes understanding.
[2023-06-29 22:20] VITALS: BP 116/77; PULSE 76; RESP 14; TEMP 37; O2SAT 99
== END 2023-06-29 22:37 | disposition home or self-care (01) ==
PROVIDERS: Emergency Provider Emergency Medicine
DX: S06.0X0A Concussion without loss of consciousness, initial encounter (principal); S13.4XXA Sprain of ligaments of cervical spine, initial encounter; S63.91XA Sprain of unspecified part of right wrist and hand, initial encounter; S39.012A Strain of muscle, fascia and tendon of lower back, initial encounter; V43.52XA Car driver injured in collision with other type car in traffic accident, initial encounter; Y93.89 Activity, other specified; Y92.414 Local residential or business street as the place of occurrence of the external cause; Y99.9 Unspecified external cause status
CPT/HCPCS: 71046; 73130; 93005; 99283; 99285

== ENCOUNTER → 2023-06-29 19:09 | Outpatient (BNV) | payer OTHER, MEDICAID, SELFPAY | PROVIDERS: Emergency Provider Emergency Medicine; Visit Provider Internal Medicine | DX: I49.9 Cardiac arrhythmia, unspecified (principal); Z04.3 Encounter for examination and observation following other accident | CPT/HCPCS: 93010 ==